=== PATIENT | male | born 1990 | race Two or more races ===

== ENCOUNTER → 2018-01-01 | Emergency (ER) | payer OTHER ==
[~2018-01-01] VITALS: Ht 175.3 cm; Wt 112.5 kg
[~2018-01-01] MED LIST: LISINOPRIL5 MG
== END | disposition home or self-care (01) ==
LOC: ER 16:49
DX: R07.89 Other chest pain (principal); M94.0 Chondrocostal junction syndrome [Tietze]; I10 Essential (primary) hypertension